=== PATIENT | male | born 1995 | race Caucasian/White ===

== ENCOUNTER 2017-10-19 09:47 | Emergency (ER) | payer OTHER ==
[~2017-10-19] VITALS: Ht 180.3 cm; Wt 88.2 kg
[2017-10-19] MEDS ORDERED: KEFLEX500 MG PO (11:23)
[2017-10-19] MEDS ORDERED: BACTRIM,SEPT1 TABLET PO (11:23)
[2017-10-19] MEDS ORDERED: MOTRIN800 MG PO (11:23)
[2017-10-19] MEDS ORDERED: BACTROBAN CREAM15 GM TP (11:25)
[2017-10-19 11:37] VITALS: BP 126/89
== END 2017-10-19 11:37 | disposition home or self-care (01) ==
LOC: EME 09:47
DX: L03.115 Cellulitis of right lower limb (principal); Z86.14 Personal history of Methicillin resistant Staphylococcus aureus infection; M25.561 Pain in right knee; W00.0XXA Fall on same level due to ice and snow, initial encounter; F17.200 Nicotine dependence, unspecified, uncomplicated
CPT/HCPCS: 73564; 99281; 99284